=== PATIENT | male | born 1980 | race Caucasian/White ===

== ENCOUNTER → 2019-10-16 | Outpatient (CLI) | payer OTHER ==
--- NOTE | 2019-10-16 12:12 | KCIC ---
Upper GI and small bowel series dated 10/16/2019. No comparison available. CLINICAL INDICATION: Diarrhea and hypoglycemia. FINDINGS: Initial retail parts professional radiograph shows a moderate amount of stool throughout the colon. No abnormal calcification. The esophagus is normal in caliber. Normal peristaltic motion. There is no apparent mucosal lesion or stricture. No significant hiatal hernia. No GE reflux elicited during the exam. Stomach is normal in size. No mucosal lesion or ulcerative defect. The duodenal bulb and sweep are unremarkable. The small bowel is normal in caliber. No apparent fold thickening or mucosal lesion. Contrast material reaches the colon at 125 minutes. Spot compression imaging of the terminal ileum show no significant abnormality. No intrinsic or extrinsic mass effect. The appendix is normal in caliber. 2 minutes 15 seconds fluoroscopic time used. 17 images. IMPRESSION: Normal upper GI study and small bowel series. Electronically signed by: Adarsh Veliz MD (10/16/2019 12:09 PM) [id number]
== END | disposition home or self-care (01) ==
LOC: KCIC 08:49
PROVIDERS: ATTEND Family Medicine
DX: K30 Functional dyspepsia (principal); K52.9 Noninfective gastroenteritis and colitis, unspecified; N17.9 Acute kidney failure, unspecified; E16.2 Hypoglycemia, unspecified
CPT/HCPCS: 74245

== ENCOUNTER → 2021-06-28 | Outpatient (CLI) | payer OTHER ==
[~2021-06-28] MED LIST: GADOTERATE 5 MMOL/10ML VIAL. INT ART ONE; IOHEXOL 300 MG/ML 50 ML VIAL. INT ART ONE; LIDOCAINE 1% Multi-Dose 20 ML VIAL. ID ONE
--- NOTE | 2021-06-28 15:40 | KCIC ---
FLUOROSCOPICALLY GUIDED RIGHT SHOULDER ARTHROGRAM 1. INDICATION: The patient is a 41 years old Male who presented with right shoulder pain. 2. CONSENT: The risks, benefits, treatment options, potential complications and personnel to be invo lved were discussed (including the risks of radiation exposure, instruments to be used, contrast and anesthesia administration) with the patient. All questions were answered and consent was obtained. Th e patient indicated willingness to proceed. 3. GENERAL: a) Medication Reconciliation: The patient's medications and allergies were reviewed in the [facility] medical record and reconciled to the proposed procedure/treatment. Pre-procedure Sign-in: Safety Checklist Performed Yes b) Positioning: The patient was placed Supine on the fluoroscopy table. c) The shoulder was then sterilely prepped and draped. d) Time Out: A time out was performed immediately prior to procedure start with the nursing, anesthes ia and interventional team, correctly identifying the patient name, date of , procedure, anatomy (including marking of site and side), patient position, procedure consent form, relevant diagnostic and radiology test results, antibiotic administration, safety precautions, and procedure-specific equ ipment needs. Procedure Start Time / Timeout Time: 14:48 e) Anesthesia Type: Local anesthesia: 3 mL 1% Lidocaine 4. PROCEDURE: a) Procedure Details: A 20g spinal needle was inserted into the shoulder joint. 3 mL Omnipaque 300 w as injected to confirm intra-articular placement of needle. Contrast was observed to flow into the in tra-articular space of the joint without significant resistance. 12 mL of injectate was administered into the joint. The needle was removed. Images were stored to the permanent digital archive documenti ng needle position. b) Injectate Contents: 0.2 mL Clariscan 20 mL Normal Saline c) Estimated Blood Loss: 0 mL RADIATION DOSE: Fluoroscopic Radiation Summary: Fluoroscopy Time: 0:12 min:sec Number of Images: 1 POST PROCEDURE: a) Hemostasis: Hemostasis was achieved using light manual compression. b) Sign-out: Communication Performed Yes c) Procedure End Time: 14:59 d) Conclusion: The patient was discharged from the radiology department in stable condition. COMPLICATIONS: a) Significant Patient Complication: None If other, explain: b) Complications during the procedure: None If other, explain: 5. RESULTS: Contrast was injected into the joint. 6. IMPRESSION: SUCCESSFUL FLUOROSCOPICALLY GUIDED ARTHROGRAM OF THE RIGHT SHOULDER DESCRIBED ABOVE. Electronically signed by: Igor Bridges DO (06/28/2021 3:37 PM) [id number]
--- NOTE | 2021-06-28 17:36 | KCIC ---
EXAMINATION: MR ARTHROGRAM RIGHT SHOULDER CLINICAL HISTORY: Right shoulder pain. Lifting/moving injury 04/26/21. Weakness, pain, instability, de creased ROM TECHNIQUE: MRI shoulder arthrogram protocol. Procedural portion of the arthrogram reported separately . COMPARISON: None FINDINGS: LABRUM: Circumferential labral degeneration with diminutive appearance of the anterior superior labru m, suspicious for degenerative tearing but alternatively could be related to normal variance. TENDONS: - Supraspinatus: Intact. - Infraspinatus: Intact. - Subscapularis: Intact. - Teres minor: Intact. - Biceps Tendon: Long head biceps tendon intact and appropriately located. MUSCLES: Rotator cuff muscle bulk and signal intensity within normal limits. GLENOHUMERAL JOINT: Articular cartilage within normal limits. ACROMIOCLAVICULAR JOINT: Within normal limits. BONES/MARROW: No evidence of acute fracture or suspicious marrow replacing process. IMPRESSION: Labral degeneration with suspicion for degenerative tearing in the anterior superior labrum as descri bed. No full-thickness rotator cuff tear. Electronically signed by: Igor Bridges DO (06/28/2021 5:34 PM) [id number]
== END | disposition home or self-care (01) ==
LOC: KCIC 13:50
PROVIDERS: ATTEND Orthopaedic Surgery
DX: M25.511 Pain in right shoulder (principal); Z79.899 Other long term (current) drug therapy
CPT/HCPCS: 23350; 73222; 77002; A9575; J3490; Q9967

== ENCOUNTER → 2021-09-15 | Outpatient (CLI) | payer OTHER ==
[~2021-09-15] MED LIST changes: +CITA10TA5 PO; -GADOTERATE 5 MMOL/10ML VIAL. INT ART ONE; +HYDR-2761 PO; -IOHEXOL 300 MG/ML 50 ML VIAL. INT ART ONE; -LIDOCAINE 1% Multi-Dose 20 ML VIAL. ID ONE; +SUMA100T4 PO; +TOPI50TA8 PO
== END ==
LOC: LAB 11:46
PROVIDERS: ATTEND Orthopaedic Surgery
DX: Z01.812 Encounter for preprocedural laboratory examination (principal); Z20.822 Contact with and (suspected) exposure to COVID-19
CPT/HCPCS: U0003; U0005

== ENCOUNTER 2021-09-19 06:13 | Day surgery (SDC) | payer OTHER ==
[~2021-09-19] VITALS: Ht 193 cm; Wt 122.0 kg
[~2021-09-19 06:13] MED LIST changes: -HYDR-2761 PO; +HYDROmorphone 2 MG/ML INJ. IVP PRN; +IV RINGERS,LACTATED 1000ML 1,000 ML IV SCH; +MORPHINE SULFATE 2 MG/ML INJ. IVP PRN; +PROCHLORPERAZINE 10 MG/2 ML VIAL. IVP PRN; +ceFAZolin SODIUM 3 GM in IV DEXTROSE 5% 100ML 100 ML IV PRN; +fentaNYL PF VIAL 100 MCG/2 ML VIAL IVP PRN
[2021-09-19 06:37] VITALS: BP 139/86
[2021-09-19] MEDS ORDERED: DEXAMETHASONE SOD PHOS 4 MG/ML VIAL ONE ×2 (06:42→07:08)
[2021-09-19] MEDS ORDERED: fentaNYL PF VIAL 100 MCG/2 ML VIAL ONE ×2 (06:43→09:04)
[2021-09-19] MEDS ORDERED: ROCURONIUM 50 MG/5 ML VIAL. ONE (06:43)
[2021-09-19] MEDS ORDERED: PROPOFOL 10 MG/ML (20ML) VIAL. IV ONE (06:43)
[2021-09-19] MEDS ORDERED: ONDANSETRON PF 4 MG/2 ML VIAL. ONE (06:44)
[2021-09-19] MEDS ORDERED: LIDOCAINE 2% PF 5 ML VIAL. ONE (06:44)
[2021-09-19] MEDS ORDERED: NEOSTIGMINE METHYLSULFATE 5 MG/5 ML SYRINGE. ONE (06:45)
[2021-09-19] MEDS ORDERED: GLYCOPYRROLATE 1 MG/5 ML VIAL. ONE (06:45)
[2021-09-19] MEDS ORDERED: KETOROLAC 30 MG/ML VIAL. ONE (06:49)
[2021-09-19] MEDS ORDERED: LIDOCAINE 1% PF 2 ML VIAL. ONE (07:08)
[2021-09-19] MEDS ORDERED: MIDAZOLAM HCL/PF 2 MG/2 ML VIAL. ONE (07:08)
[2021-09-19] MEDS ORDERED: ROPIVacaine 0.5% PF 20 ML VIAL. ONE (07:09)
[2021-09-19] MEDS ORDERED: SEVOFLURANE 31 TO 60 MINUTES. IH ONE (08:31)
--- NOTE | 2021-09-19 08:37 | PDOC4 ---
OPERATIVE NOTE Date: Date: Sep 19, 2021 Pre-Op Diagnosis: Right shoulder pain possible labral tear Post-Op Diagnosis: Impingement AC arthrosis right shoulder bursal tear partial rotator cuff tear Procedure Performed: Right shoulder arthroscopy with subacromial decompression distal clavicle resection and bursectomy. Surgeon: Bree Anesthesia Type: General Blood Loss: 20 cc Specimans Obtained: None Findings: See dictation Complications: None AMIRA MOROCHO Jr. DO Sep 19, 2021 08:37
[2021-09-19] MEDS ORDERED: HYDR-2761 PO (08:49)
--- NOTE | 2021-09-19 08:52 | DISCH ---
DISCHARGE INSTRUCTIONS Condition on Discharge Condition on Discharge: Stable Activity After Discharge Activity Instructions for Disc: Activity as tolerated, Avoid exertion Driving Instructions after Dis: Do not drive today Wound Incision Care Wound/Incision Care: Ice to area for comfort Other wound/incision instructi: May change dressings postoperative day #3 to waterproof Band-Aids Follow-Up Follow up with: 10 to 14 days sling as tolerated AMIRA MOROCHO Jr. DO Sep 19, 2021 08:52
[2021-09-19] MEDS: fentaNYL PF VIAL 100 MCG/2 ML VIAL IVP PRN ×2 (09:09→09:25)
--- NOTE | 2021-09-19 09:13 | OP ---
DATE OF SURGERY: 09/19/2021 PREOPERATIVE DIAGNOSIS: Possible labral tear, right shoulder with AC joint changes. POSTOPERATIVE DIAGNOSIS: Acromioclavicular joint strain with partial rotator cuff tear, longitudinal split, impingement. PROCEDURES: Right shoulder arthroscopy with subacromial decompression, distal clavicle resection, release CA ligament and bursectomy. SURGEON: Dion Giron Jr, DO. [employer]: Sabino Mcconnell. ANESTHESIA: General. COMPLICATIONS: None. ESTIMATED BLOOD LOSS: 20 mL. DESCRIPTION OF PROCEDURE: The patient was taken to the operative suite, given general anesthetic, placed in a beach chair position. The right shoulder was then prepped and draped in a sterile fashion. Evaluation of the shoulder revealed all structures to be intact. While there were some changes along the area inferiorly of the labrum, there was no tearing from the actual glenoid itself. The biceps tendon and the bicep anchor were completely intact. There was noted to be no significant changes of the posterior labrum with probing and a full evaluation. No excessive pouch size noted at this point. No tears of the rotator cuff from the undersurface. Therefore, the scope was then taken into the subacromial region where a subacromial decompression was performed due to some downsloping of the anterior acromion. The AC joint had the disc in between this and the AC joint, which was damaged. This was removed in its entirety through the redirected anterior portal and there were some changes of the distal clavicle and therefore undersurface osteophytes were removed and then a decompression was done of the AC joint itself. Evaluation of the rotator cuff revealed there to be a 2 mm longitudinal split; however, this was not full thickness. It was only 2 mm in depth. Therefore, after the bursectomy was completed, no other abnormalities were noted. The instruments were removed. The wounds were then reapproximated. Sterile dressing was applied. The patient was then taken from the operative bed to the postoperative bed, taken to the PACU in stable condition. MINA DR: Echo TID: [id number]
[2021-09-19 09:15] VITALS: BP 125/67
[2021-09-19] MEDS ORDERED: HYDROcodone/APAP 5/325MG 1 TAB TABLET ONE (09:29)
[2021-09-19] MEDS ORDERED: HYDROcodone/APAP 5/325MG 1 TAB TABLET PO ONE (09:30)
--- NOTE | 2021-09-19 10:07 | PREOP HP ---
DATE OF SERVICE: 09/19/2021 BRIEF HISTORY: He is here for evaluation of his right shoulder. Last seen by Dr. 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 There is an anterior labral tear, possibly a SLAP tear noted on MRI examination. There are no signs of a rotator cuff pathology and subsequent to that has failed all conservative therapies in regards to the shoulder. We have therefore gone over treatments with him. PAST MEDICAL HISTORY: Remarkable for esophageal reflux, migraine headaches, hypertension, some deafness, as well as former tobacco use. PAST SURGICAL HISTORY: None. FAMILY HISTORY: Unremarkable. SOCIAL HISTORY: He was a tobacco user in the past, quit in 1999, is currently a laboratory manager. No alcohol use. MEDICATIONS: Sumatriptan, citalopram, topiramate, aspirin, melatonin, zinc, vitamin D, vitamin C. MEDICATION ALLERGIES: None. PHYSICAL EXAMINATION: He is 74 inches tall, 278 pounds. Right shoulder reveals pain with internal and external rotation with positive crank test. A lot of apprehension, especially with abduction and external rotation. Internal rotation is also uncomfortable. He has tenderness over the area of the AC joint to pain at the AC joint with crossover. No signs of instability; however, no signs or weakness at the rotator cuff with testing throughout the examination with isolation of the supraspinatus and/or subscapularis as well. DIAGNOSTIC DATA: MRI again shows some degenerative tearing and some issues as far as the shoulder. Labral tissue appears to be more anterior. IMPRESSION: Possible labral pathology, right shoulder. PLAN: At this time, we have gone over the risks, complications, as well as benefits and expectations of surgery. All questions were answered at this point. We will proceed as soon as he is medically cleared and stable. CARIDAD/KATRIN/GREG CARVAJAL: CARIDAD/mary jo TID: [id number]
== END 2021-09-19 09:58 | disposition home or self-care (01) ==
LOC: SURG 06:13
PROVIDERS: ATTEND Orthopaedic Surgery
DX: M75.101 Unspecified rotator cuff tear or rupture of right shoulder, not specified as traumatic (principal); S43.431A Superior glenoid labrum lesion of right shoulder, initial encounter; K21.9 Gastro-esophageal reflux disease without esophagitis; I10 Essential (primary) hypertension; M19.90 Unspecified osteoarthritis, unspecified site; F41.9 Anxiety disorder, unspecified; F32.9 Major depressive disorder, single episode, unspecified; Z79.899 Other long term (current) drug therapy; Z72.89 Other problems related to lifestyle; Z98.890 Other specified postprocedural states; X58.XXXA Exposure to other specified factors, initial encounter; Y93.89 Activity, other specified; Y92.89 Other specified places as the place of occurrence of the external cause; Y99.8 Other external cause status
CPT/HCPCS: 29807; 29822; 29824; A4565; A4930; J1100; J1885; J2250; J2405; J2704; J2710; J2795; J3010; J3490; A4452